=== PATIENT | female | born 1950 | race Caucasian/White ===

== ENCOUNTER 2022-11-20 17:15 | Emergency (ER) | payer MEDICARE ==
[~2022-11-20] VITALS: Ht 165.1 cm; Wt 100.0 kg
[~2022-11-20 17:15] MED LIST: DEXL30CA3 PO; IRON1TAB90 PO; METF-1203 PO; MILK500C PO; SPIR25TA5 PO
[2022-11-20 18:40] LABS: BASOPHILS % (AUTO) 0.8 % (0-1); EOSINOPHILS # (AUTO) 0.2 X10'3 (0-0.9); EOSINOPHILS % (AUTO) 3.1 % (0-6); HEMATOCRIT 41.7 % (35.0-45.0); LYMPHOCYTES % (AUTO) 17.9 % (21-51); MEAN CORPUSCULAR HGB CONC 31.1 g/dL (33.0-36.5); MEAN CORPUSCULAR VOLUME 80.2 FL (78-98); MEAN PLATELET VOLUME 8.1 FL (7.4-10.4); MONOCYTES # (AUTO) 0.1 X10'3 (0-0.9); MONOCYTES % (AUTO) 2.1 % (2-12); NEUTROPHILS # (AUTO) 4.3 X10'3 (1.8-7.7); NEUTROPHILS % (AUTO) 76.1 % (42-75); PLATELET COUNT 196 X10'3 (140-440); RED CELL DISTRIBUTION WIDTH 22.9 % (11.5-14.5); WHITE BLOOD COUNT 5.7 X10'3 (4.5-11.0)
[2022-11-20 18:56] LABS: ALANINE AMINOTRANSFERASE 22 U/L (12-78); ALBUMIN 3.4 G/DL (3.4-5.0); ALBUMIN/GLOBULIN RATIO 0.8 (1.1-1.5); ALKALINE PHOSPHATASE 108 IU/L (46-116); ANION GAP 12 (8-16); ASPARTATE AMINO TRANSFERASE 19 U/L (10-37); BILIRUBIN,TOTAL 0.8 MG/DL (0.1-1.0); BLOOD UREA NITROGEN 13 MG/DL (7-18); BUN/CREATININE RATIO 10.9 (6.6-38.0); CALCIUM 9.1 MG/DL (8.5-10.1); CHLORIDE 101 MMOL/L (99-107); CREATININE 1.19 MG/DL (0.40-0.90); GLUCOSE 139 MG/DL (70-104); LIPASE 107 U/L (73-393); SODIUM 137 MMOL/L (135-145); TOTAL PROTEIN 7.5 G/DL (6.4-8.2); eGFR 45 ML/MIN
[2022-11-20 19:34] LABS: ANISOCYTOSIS 3+; PLATELET ESTIMATE NORMAL
[2022-11-20 19:35] LABS: ELLIPTOCYTES FEW; TEAR DROP CELLS FEW
[2022-11-20] MEDS ORDERED: ondansetron/PF 4mg/2ml inj IV ONE (20:30)
[2022-11-20] MEDS ORDERED: morphine 4 MG/ML inj SYRINge IV PRN (20:30)
[2022-11-20] MEDS ORDERED: normal saline 1000ML IV soln IVB ONE (20:30)
--- NOTE | 2022-11-20 20:51 | NUR ---
ivp given by charge nurse
[2022-11-20] MEDS ORDERED: LIDOcaine Viscous 15ml cup MM ONE (22:05)
[2022-11-20] MEDS ORDERED: sucralfate 1 gm tablet PO ONE (22:05)
[2022-11-20] MEDS ORDERED: mag hydrox/Alum hydrox/simeth 30ml oral suspension PO ONE (22:05)
[2022-11-20] MEDS ORDERED: SUCR1TAB34 PO (22:23)
[2022-11-20] MEDS ORDERED: ONDA4TAB12 PO (22:23)
[2022-11-20 22:24] VITALS: BP 136/74
--- NOTE | 2022-11-20 23:34 | NUR ---
IV DC'D PT BEING DISCHARGED DRESSING APPLIED
== END 2022-11-20 23:36 | disposition home or self-care (01) ==
LOC: ER 17:15
DX: R10.13 Epigastric pain (principal); R11.2 Nausea with vomiting, unspecified; E11.9 Type 2 diabetes mellitus without complications; G89.29 Other chronic pain; Z98.51 Tubal ligation status; Z79.899 Other long term (current) drug therapy; Z79.84 Long term (current) use of oral hypoglycemic drugs
CPT/HCPCS: 36415; 74176; 80053; 83690; 85008; 85025; 96361; 96374; 96375; 99285; J2270; J2405; J7030

== ENCOUNTER 2022-11-24 04:20 | Emergency (ER) | payer MEDICARE ==
[~2022-11-24] VITALS: Ht 165.1 cm; Wt 100.0 kg
[~2022-11-24 04:20] MED LIST changes: +ONDA4TAB12 PO; +SUCR1TAB34 PO
[2022-11-24 04:50] LABS: BASOPHILS # (AUTO) 0.1 X10'3 (0-0.2); BASOPHILS % (AUTO) 0.7 % (0-1); EOSINOPHILS # (AUTO) 0.2 X10'3 (0-0.9); EOSINOPHILS % (AUTO) 2.3 % (0-6); HEMATOCRIT 34.4 % (35.0-45.0); HEMOGLOBIN 10.9 g/dl (12.0-16.0); LYMPHOCYTES # (AUTO) 0.8 X10'3 (1.1-4.8); LYMPHOCYTES % (AUTO) 8.5 % (21-51); MEAN CORPUSCULAR HGB CONC 31.6 g/dL (33.0-36.5); MEAN CORPUSCULAR VOLUME 79.3 FL (78-98); MEAN PLATELET VOLUME 7.2 FL (7.4-10.4); MONOCYTES # (AUTO) 1.1 X10'3 (0-0.9); MONOCYTES % (AUTO) 11.7 % (2-12); NEUTROPHILS # (AUTO) 7.2 X10'3 (1.8-7.7); NEUTROPHILS % (AUTO) 76.8 % (42-75); PLATELET COUNT 205 X10'3 (140-440); RED BLOOD COUNT 4.34 X10'6 (4.20-5.60); WHITE BLOOD COUNT 9.4 X10'3 (4.5-11.0)
[2022-11-24] MEDS ORDERED: ondansetron/PF 4mg/2ml inj IV ONE (04:50)
[2022-11-24] MEDS ORDERED: morphine 4 MG/ML inj SYRINge IV ONE (04:50)
[2022-11-24 05:07] LABS: ALANINE AMINOTRANSFERASE 15 U/L (12-78); ALBUMIN 2.5 G/DL (3.4-5.0); ALBUMIN/GLOBULIN RATIO 0.7 (1.1-1.5); ALKALINE PHOSPHATASE 125 IU/L (46-116); ANION GAP 10 (8-16); ASPARTATE AMINO TRANSFERASE 19 U/L (10-37); BILIRUBIN,TOTAL 0.8 MG/DL (0.1-1.0); BLOOD UREA NITROGEN 34 MG/DL (7-18); BUN/CREATININE RATIO 20.2 (6.6-38.0); CHLORIDE 103 MMOL/L (99-107); CREATININE 1.68 MG/DL (0.40-0.90); GLUCOSE 114 MG/DL (70-104); LIPASE 228 U/L (73-393); POTASSIUM 4.3 MMOL/L (3.5-5.1); SODIUM 136 MMOL/L (135-145); TOTAL CARBON DIOXIDE 22.8 MMOL/L (24-32); TOTAL PROTEIN 6.3 G/DL (6.4-8.2); eGFR 30 ML/MIN
[2022-11-24] MEDS ORDERED: LIDOCAINE 2%/EPI 1:100,000 inj. Multi-dose 20 ML VIAL SQ ONE (06:25)
[2022-11-24 06:59] LABS: PLATELET ESTIMATE NORMAL
[2022-11-24 07:00] LABS: ANISOCYTOSIS 3+; ELLIPTOCYTES 1+; HYPOCHROMASIA 1+; MICROCYTOSIS 1+; POLYCHROMASIA FEW
[2022-11-24 07:01] LABS: BURR CELLS 1+
--- NOTE | 2022-11-24 07:43 | NUR ---
5.5 bottles peritoneal fluid drained from abdomen. Pt c/o of lower right abd pain, but states it is not new pain, and that she has had it for a few days. Pt macie procedure. Addendum: 11/24/22 at 0815 by INEZ 6 bottles of peritoneal fluid withdrawn
[2022-11-24] MEDS ORDERED: albumin (Human) 5% 250ml 250 ML IV ONE (07:50)
[2022-11-24] MEDS ORDERED: albumin (human) 25% 100 ML IV solution IV ONE (07:55)
[2022-11-24 08:57] LABS: BODY FLUID PH (NON-PLEURAL) 7.5
[2022-11-24 09:10] LABS: LDH,BODY FLUID 158 U/L
[2022-11-24 09:11] LABS: ALBUMIN,BODY FLUID 0.7 G/DL; GLUCOSE,BODY FLUID 103 MG/DL
[2022-11-24 09:13] LABS: LYMPHOCYTES,BODY FLUID 15 %; MONOCYTES,BODY FLUID 5 %; NEUTROPHILS,BODY FLUID 80 %
[2022-11-24 09:16] LABS: BF RBC COUNT 10375 /CU MM; BF WBC COUNT 4100 /CU MM (0-1000); BFAPPEAR CLOUDY; BFCOLOR OTHER; BFVOLUME 18 ML
--- NOTE | 2022-11-24 09:16 | NUR ---
T/C from to check in on . Verified appropriateness to pass on information, and updated him to her condition. Pt will call him back shortly.
[2022-11-24 09:33] LABS: TOTAL PROTEIN,BODY FLUID < 2.0 G/DL
[2022-11-24] MEDS ORDERED: SPIR50TA5 PO (09:53)
[2022-11-24] MEDS ORDERED: FURO-149 PO (09:53)
[2022-11-24 10:19] VITALS: BP 115/74
== END 2022-11-24 10:10 | disposition home or self-care (01) ==
LOC: ER 04:21
DX: R18.8 Other ascites (principal); K76.6 Portal hypertension; E11.9 Type 2 diabetes mellitus without complications; G89.29 Other chronic pain; M54.50 Low back pain, unspecified
CPT/HCPCS: 36415; 49083; 80053; 82042; 82945; 83615; 83690; 83986; 84157; 85008; 85025; 85610; 87070; 89051; 96365; 96375; 99285; J2270; J2405; P9047

== ENCOUNTER 2023-06-19 08:22 | Day surgery (SDC) | payer MEDICARE ==
[~2023-06-19] VITALS: Ht 165.1 cm; Wt 79.5 kg
[~2023-06-19 08:22] MED LIST changes: +FURO-149 PO; +SPIR50TA5 PO
[2023-06-19 08:34] VITALS: BP 117/76; PULSE 79; RESP 16; TEMP 97.5; O2SAT 96
[2023-06-19] MEDS ORDERED: CLON1TAB12 PO (08:48)
[2023-06-19] MEDS ORDERED: OMEP20CA16 PO (08:48)
[2023-06-19] MEDS ORDERED: FURO40TA4 PO (08:48)
[2023-06-19] MEDS ORDERED: HYDR50CA5 PO (08:48)
[2023-06-19] MEDS ORDERED: METF-436 PO (08:48)
[2023-06-19] MEDS ORDERED: albumin 25% 100mL bottle x 1 IV PRN (08:55)
[2023-06-19 09:00] VITALS: BP 117/76; PULSE 79; RESP 16; O2SAT 96
== END 2023-06-19 09:25 | disposition home or self-care (01) ==
LOC: SSTAY O 08:22
PROVIDERS: ATTEND Radiology Vascular & Interventional Radiology
DX: K70.31 Alcoholic cirrhosis of liver with ascites (principal); Z53.8 Procedure and treatment not carried out for other reasons; I10 Essential (primary) hypertension; D64.9 Anemia, unspecified; E11.9 Type 2 diabetes mellitus without complications; F98.8 Other specified behavioral and emotional disorders with onset usually occurring in childhood and adolescence; F41.9 Anxiety disorder, unspecified; M19.90 Unspecified osteoarthritis, unspecified site; F32.A Depression, unspecified; K21.9 Gastro-esophageal reflux disease without esophagitis; E78.5 Hyperlipidemia, unspecified; F10.20 Alcohol dependence, uncomplicated; Z98.51 Tubal ligation status; Z98.1 Arthrodesis status; Z87.891 Personal history of nicotine dependence; Z79.84 Long term (current) use of oral hypoglycemic drugs; Z79.899 Other long term (current) drug therapy
CPT/HCPCS: 76705

== ENCOUNTER 2024-02-07 14:06 | Emergency (ER) | payer MEDICARE ==
[~2024-02-07] VITALS: Ht 165.1 cm; Wt 83.6 kg
[~2024-02-07 14:06] MED LIST changes: -DEXL30CA3 PO; +FERR325T28 PO; +FOLI0.4T6 PO; -FURO-149 PO; +HYDR50CA5 PO; -IRON1TAB90 PO; -METF-1203 PO; -MILK500C PO; -ONDA4TAB12 PO; +PANT40TA54 PO; +PROP10TA10 PO; +RIFA550T PO; -SPIR50TA5 PO; -SUCR1TAB34 PO; +ZAR2.5T PO
[2024-02-07 15:26] LABS: HEMATOCRIT 29.2 % (35.0-45.0); MEAN CORPUSCULAR HEMOGLOBIN 23.8 PG (27.0-31.0); MEAN CORPUSCULAR HGB CONC 30.9 g/dL (33.0-36.5); MEAN PLATELET VOLUME 8.2 FL (7.4-10.4); PLATELET COUNT 121 X10'3 (140-440); RED BLOOD COUNT 3.79 X10'6 (4.20-5.60); RED CELL DISTRIBUTION WIDTH 22.5 % (11.5-14.5); WHITE BLOOD COUNT 6.1 X10'3 (4.5-11.0)
[2024-02-07 15:40] LABS: APTT 26 SECONDS (22-32); INR 1.1 INR; PROTHROMBIN TIME 11.8 SECONDS (9.0-12.0)
[2024-02-07 15:43] LABS: ALANINE AMINOTRANSFERASE 24 U/L (12-78); ALBUMIN 2.7 G/DL (3.4-5.0); ALBUMIN/GLOBULIN RATIO 0.6 (1.1-1.5); ALKALINE PHOSPHATASE 85 IU/L (46-116); AMYLASE 41 U/L (25-115); ANION GAP 9 (8-16); ASPARTATE AMINO TRANSFERASE 29 U/L (10-37); BILIRUBIN,TOTAL 0.9 MG/DL (0.1-1.0); BLOOD UREA NITROGEN 24 MG/DL (7-18); BUN/CREATININE RATIO 22.2 (10.0-20.0); CALCIUM 8.4 MG/DL (8.5-10.1); CHLORIDE 104 MMOL/L (99-107); CREATININE 1.08 MG/DL (0.40-0.90); GLUCOSE 122 MG/DL (70-104); LIPASE 64 U/L (16-77); POTASSIUM 3.9 MMOL/L (3.5-5.1); SODIUM 139 MMOL/L (135-145); TOTAL CARBON DIOXIDE 26.3 MMOL/L (24-32); eCRCL 42 ML/MIN; eGFR 50 ML/MIN
[2024-02-07 16:20] LABS: TOTAL CELLS COUNTED 100
[2024-02-07 16:21] LABS: ANISOCYTOSIS 3+; MICROCYTOSIS 1+; PLATELET ESTIMATE DECREASED
[2024-02-07 16:22] LABS: BURR CELLS FEW; ELLIPTOCYTES FEW; TEAR DROP CELLS FEW
[2024-02-07 16:23] LABS: POIKILOCYTOSIS FEW; POLYCHROMASIA FEW
[2024-02-07 19:15] LABS: BASOPHILS # (AUTO) 0.1 X10'3 (0-0.2); BASOPHILS % (AUTO) 0.7 % (0-1); EOSINOPHILS # (AUTO) 0.1 X10'3 (0-0.9); EOSINOPHILS % (AUTO) 1.9 % (0-6); HEMATOCRIT 29.1 % (35.0-45.0); HEMOGLOBIN 9.4 g/dl (12.0-16.0); LYMPHOCYTES # (AUTO) 1.2 X10'3 (1.1-4.8); LYMPHOCYTES % (AUTO) 16.4 % (21-51); MEAN CORPUSCULAR HEMOGLOBIN 24.3 PG (27.0-31.0); MEAN CORPUSCULAR HGB CONC 32.1 g/dL (33.0-36.5); MEAN CORPUSCULAR VOLUME 75.6 FL (78-98); MEAN PLATELET VOLUME 8.1 FL (7.4-10.4); MONOCYTES # (AUTO) 0.5 X10'3 (0-0.9); MONOCYTES % (AUTO) 7.6 % (2-12); NEUTROPHILS # (AUTO) 5.2 X10'3 (1.8-7.7); NEUTROPHILS % (AUTO) 73.4 % (42-75); PLATELET COUNT 153 X10'3 (140-440); RED BLOOD COUNT 3.85 X10'6 (4.20-5.60); RED CELL DISTRIBUTION WIDTH 22.2 % (11.5-14.5); WHITE BLOOD COUNT 7.1 X10'3 (4.5-11.0)
[2024-02-07] MEDS ORDERED: ONDA8TAB13 PO (19:24)
[2024-02-07] MEDS: ondansetron 4mg rapidly disintigrating tab PO ONE (19:34)
[2024-02-07 19:38] VITALS: BP 138/80; PULSE 89; RESP 18; TEMP 98.1; O2SAT 98
== END 2024-02-07 19:40 | disposition home or self-care (01) ==
LOC: ER 14:07
DX: K92.0 Hematemesis (principal); I10 Essential (primary) hypertension; D64.9 Anemia, unspecified; E11.9 Type 2 diabetes mellitus without complications; G89.29 Other chronic pain; M54.9 Dorsalgia, unspecified; Z98.51 Tubal ligation status
CPT/HCPCS: 36415; 80053; 82140; 82150; 83690; 85007; 85025; 85610; 85730; 86885; 86900; 86901; 99283

== ENCOUNTER 2024-02-10 22:37 | Inpatient (IN) | payer MEDICARE ==
[~2024-02-10] VITALS: Ht 165.1 cm; Wt 83.6 kg
[~2024-02-10 22:37] MED LIST changes: +ONDA8TAB13 PO
[2024-02-10] MEDS ORDERED: pantoprazole 40mg IV 80 MG in normal saline 100ml IV soln 100 ML IV ONE (23:35)
[2024-02-10 23:40] LABS: BASOPHILS # (AUTO) 0.1 X10'3 (0-0.2); BASOPHILS % (AUTO) 1.1 % (0-1); EOSINOPHILS # (AUTO) 0.5 X10'3 (0-0.9); EOSINOPHILS % (AUTO) 9.7 % (0-6); LYMPHOCYTES # (AUTO) 0.7 X10'3 (1.1-4.8); LYMPHOCYTES % (AUTO) 13.3 % (21-51); MEAN CORPUSCULAR HEMOGLOBIN 23.8 PG (27.0-31.0); MEAN CORPUSCULAR HGB CONC 31.5 g/dL (33.0-36.5); MEAN CORPUSCULAR VOLUME 75.5 FL (78-98); MEAN PLATELET VOLUME 8.4 FL (7.4-10.4); MONOCYTES # (AUTO) 0.5 X10'3 (0-0.9); MONOCYTES % (AUTO) 10.5 % (2-12); NEUTROPHILS # (AUTO) 3.4 X10'3 (1.8-7.7); NEUTROPHILS % (AUTO) 65.4 % (42-75); PLATELET COUNT 111 X10'3 (140-440); RED BLOOD COUNT 2.62 X10'6 (4.20-5.60); RED CELL DISTRIBUTION WIDTH 22.1 % (11.5-14.5); WHITE BLOOD COUNT 5.2 X10'3 (4.5-11.0)
[2024-02-10] MEDS: ondansetron/PF 4mg/2ml inj IV ONE (23:47)
[2024-02-10] MEDS: CefTRIAXone/D5W-Rocephin 1gm 50 ML IV SCH (23:50)
[2024-02-10 23:53] LABS: ALANINE AMINOTRANSFERASE 22 U/L (12-78); ALBUMIN 2.2 G/DL (3.4-5.0); ALBUMIN/GLOBULIN RATIO 0.6 (1.1-1.5); ALKALINE PHOSPHATASE 83 IU/L (46-116); ANION GAP 7 (8-16); ASPARTATE AMINO TRANSFERASE 24 U/L (10-37); BILIRUBIN,TOTAL 0.4 MG/DL (0.1-1.0); BLOOD UREA NITROGEN 25 MG/DL (7-18); BUN/CREATININE RATIO 20.3 (10.0-20.0); CALCIUM 7.3 MG/DL (8.5-10.1); CHLORIDE 105 MMOL/L (99-107); CREATININE 1.23 MG/DL (0.40-0.90); GLUCOSE 141 MG/DL (70-104); LIPASE 120 U/L (16-77); SODIUM 140 MMOL/L (135-145); TOTAL CARBON DIOXIDE 28.4 MMOL/L (24-32); TOTAL PROTEIN 5.8 G/DL (6.4-8.2); eCRCL 37 ML/MIN; eGFR 43 ML/MIN
[2024-02-10 23:58] LABS: POTASSIUM 2.9 MMOL/L (3.5-5.1)
[2024-02-11] VITALS (24 sets, daily range): BP systolic 85–125; BP diastolic 49–78; PULSE 74–86; RESP 14–20; TEMP 97–98.4; O2SAT 94–99
[2024-02-11 00:02] LABS: APTT 25 SECONDS (22-32); INR 1.1 INR; PROTHROMBIN TIME 12.1 SECONDS (9.0-12.0)
[2024-02-11] MEDS: pantoprazole 40 MG vial IV ONE (00:15)
[2024-02-11] MEDS: pantoprazole 40MG/NS 100ML BAG 100 ML IV ONE (00:21)
[2024-02-11 00:28] LABS: HEMATOCRIT 19.8 % (35.0-45.0); HEMOGLOBIN 6.2 g/dl (12.0-16.0)
[2024-02-11 00:45] LABS: TOTAL CELLS COUNTED 100
[2024-02-11 00:46] LABS: ANISOCYTOSIS 3+; ELLIPTOCYTES FEW; HYPOCHROMASIA 1+; MICROCYTOSIS 1+; PLATELET ESTIMATE DECREASED; POIKILOCYTOSIS 1+; TARGET CELLS FEW
[2024-02-11] MEDS: normal saline 1000ML IV soln IV ONE (00:57)
[2024-02-11] MEDS: octreotide 100mcg/1 ml ampule IV ONE (01:10)
[2024-02-11] MEDS: ondansetron/PF 4mg/2ml inj IV ONE (01:17)
[2024-02-11] MEDS: octreotide inj. 500 MCG in normal saline 100ml IV soln 97.5 ML IV ONE (01:19)
[2024-02-11] MEDS ORDERED: mag hydrox/Alum hydrox/simeth 30ml oral suspension PO PRN (02:55)
[2024-02-11] MEDS ORDERED: magnesium Cl slow-release 64mg tablet PO PRN (02:55)
[2024-02-11] MEDS ORDERED: potassium Cl 20 mEq SR tablet PO PRN ×2 (02:55)
[2024-02-11] MEDS ORDERED: magnesium 4gm in 100ml NS 100 ML IV PRN (02:55)
[2024-02-11] MEDS ORDERED: magnesium hydroxide 30ml (MOM) UD suspension PO PRN (02:55)
[2024-02-11] MEDS ORDERED: ondansetron/PF 4mg/2ml inj IV PRN (02:55)
[2024-02-11] MEDS ORDERED: acetaminophen 325mg tablet PO PRN (02:55)
[2024-02-11] MEDS: ringers solution, lacted 1,000 ML IV ONE (03:00)
[2024-02-11] MEDS: POTASSIUM BICARB 20meq eff tab 20 MEQ TABLET.EFF PO ONE (03:07)
[2024-02-11 03:39] LABS: MAGNESIUM 1.6 MG/DL (1.5-2.4)
[2024-02-11] MEDS: POTASSIUM BICARB 20meq eff tab 20 MEQ TABLET.EFF PO STA (03:51)
[2024-02-11] MEDS: hydrOXYzine 25 MG tablet PO ONE (04:21)
[2024-02-11] MEDS: normal saline 1000ml 1,000 ML IV SCH (04:29)
[2024-02-11] MEDS: chlordiazePOXIDE 25mg capsule PO ONE ×2 (04:29→23:51)
[2024-02-11 05:05] LABS: MEAN CORPUSCULAR HEMOGLOBIN 24.7 PG (27.0-31.0); MEAN CORPUSCULAR HGB CONC 32.3 g/dL (33.0-36.5); MEAN CORPUSCULAR VOLUME 76.6 FL (78-98); MEAN PLATELET VOLUME 8.4 FL (7.4-10.4); PLATELET COUNT 88 X10'3 (140-440); RED BLOOD COUNT 2.53 X10'6 (4.20-5.60); RED CELL DISTRIBUTION WIDTH 20.5 % (11.5-14.5); WHITE BLOOD COUNT 5.2 X10'3 (4.5-11.0)
[2024-02-11 05:09] LABS: HEMOGLOBIN 6.2 g/dl (12.0-16.0)
[2024-02-11 05:10] LABS: HEMATOCRIT 19.3 % (35.0-45.0)
[2024-02-11] MEDS: pantoprazole 40MG/NS 100ML BAG 100 ML IV SCH ×2 (06:03→18:56)
[2024-02-11 09:16] LABS: HEMATOCRIT 26.7 % (35.0-45.0); HEMOGLOBIN 8.9 g/dl (12.0-16.0); MEAN CORPUSCULAR HGB CONC 33.4 g/dL (33.0-36.5); MEAN CORPUSCULAR VOLUME 77.7 FL (78-98); MEAN PLATELET VOLUME 8.6 FL (7.4-10.4); PLATELET COUNT 87 X10'3 (140-440); RED BLOOD COUNT 3.43 X10'6 (4.20-5.60); RED CELL DISTRIBUTION WIDTH 19.1 % (11.5-14.5); WHITE BLOOD COUNT 6.3 X10'3 (4.5-11.0)
[2024-02-11] MEDS: ringers solution, lactated 500ml IV solution IV ONE (10:11)
[2024-02-11] MEDS: CefTRIAXone/D5W-Rocephin 1gm 50 ML IV SCH (10:25)
[2024-02-11] MEDS: potassium Cl 40MEQ/1/2NS 520ml 520 ML IV PRN (12:30)
[2024-02-11] MEDS ORDERED: fentaNYL/PF 50MCG/1 ML 2ML syringe ONE (13:56)
[2024-02-11] MEDS ORDERED: LIDOcaine 2% Viscous 15ml cup ONE (13:57)
[2024-02-11] MEDS ORDERED: MIDAZolam 1 MG/ML 5ML VIAL ONE (13:57)
[2024-02-11] MEDS ORDERED: levoFLOXACIN-Levaquin 500mg/D5 100 ML IV ONE (14:26)
[2024-02-11 15:55] LABS: HEMATOCRIT 26.1 % (35.0-45.0); HEMOGLOBIN 8.4 g/dl (12.0-16.0); MEAN CORPUSCULAR HEMOGLOBIN 25.1 PG (27.0-31.0); MEAN CORPUSCULAR HGB CONC 32.1 g/dL (33.0-36.5); MEAN CORPUSCULAR VOLUME 78.2 FL (78-98); MEAN PLATELET VOLUME 8.8 FL (7.4-10.4); PLATELET COUNT 89 X10'3 (140-440); RED BLOOD COUNT 3.34 X10'6 (4.20-5.60); RED CELL DISTRIBUTION WIDTH 18.8 % (11.5-14.5); WHITE BLOOD COUNT 4.7 X10'3 (4.5-11.0)
[2024-02-11 22:10] LABS: HEMATOCRIT 26.2 % (35.0-45.0); HEMOGLOBIN 8.5 g/dl (12.0-16.0); MEAN CORPUSCULAR HGB CONC 32.3 g/dL (33.0-36.5); MEAN CORPUSCULAR VOLUME 77.5 FL (78-98); MEAN PLATELET VOLUME 9.2 FL (7.4-10.4); PLATELET COUNT 85 X10'3 (140-440); RED BLOOD COUNT 3.39 X10'6 (4.20-5.60); RED CELL DISTRIBUTION WIDTH 18.9 % (11.5-14.5); WHITE BLOOD COUNT 4.2 X10'3 (4.5-11.0)
[2024-02-11 23:36] LABS: BILIRUBIN,URINE NEGATIVE (Neg); CLARITY,URINE SLIGHTLY CLOUDY (Clear); COLOR,URINE YELLOW (Yellow); GLUCOSE, URINE NEGATIVE (Neg); KETONES,URINE NEGATIVE (Neg); LEUKOCYTE ESTERASE ,URINE NEGATIVE (Neg); NITRITES, URINE NEGATIVE (Neg); OCCULT BLOOD,URINE NEGATIVE (Neg); PH,URINE 5.5 (4.8-8.0); PROTEIN,URINE NEGATIVE (Neg); UROBILINOGEN,URINE 0.2 E.U/dL (0.2-1.0)
[2024-02-11 23:42] LABS: UA COLLECTION TYPE CLN CATCH MIDSTREAM
[2024-02-11 23:44] LABS: HYALINE CASTS 0-3 /LPF (NEGATIVE); MUCUS STRANDS FEW /LPF (Neg); SQUAMOUS EPITHELIAL CELL,UR MODERATE /LPF (FEW)
[2024-02-11 23:45] LABS: BACTERIA,URINE FEW /HPF (Neg); RBC,URINE 0-2 /HPF (0-2); TRANSITIONAL EPI CELLS,URINE FEW /HPF; WBC,URINE 0-4 /HPF (0-4)
[2024-02-12] VITALS (8 sets, daily range): BP systolic 106–122; BP diastolic 59–77; PULSE 68–91; RESP 12–20; TEMP 97–98.2; O2SAT 91–96
[2024-02-12] MEDS: morphine 2 MG/ML inj. syringe IV ONE (05:48)
[2024-02-12 07:58] LABS: BASOPHILS % (AUTO) 0.6 % (0-1); EOSINOPHILS # (AUTO) 0.3 X10'3 (0-0.9); EOSINOPHILS % (AUTO) 7.8 % (0-6); HEMATOCRIT 25.5 % (35.0-45.0); HEMOGLOBIN 8.4 g/dl (12.0-16.0); LYMPHOCYTES # (AUTO) 0.4 X10'3 (1.1-4.8); LYMPHOCYTES % (AUTO) 10.5 % (21-51); MEAN CORPUSCULAR HEMOGLOBIN 25.4 PG (27.0-31.0); MEAN CORPUSCULAR HGB CONC 32.8 g/dL (33.0-36.5); MEAN CORPUSCULAR VOLUME 77.3 FL (78-98); MEAN PLATELET VOLUME 8.5 FL (7.4-10.4); MONOCYTES # (AUTO) 0.6 X10'3 (0-0.9); MONOCYTES % (AUTO) 13.4 % (2-12); NEUTROPHILS # (AUTO) 2.8 X10'3 (1.8-7.7); NEUTROPHILS % (AUTO) 67.7 % (42-75); PLATELET COUNT 91 X10'3 (140-440); RED CELL DISTRIBUTION WIDTH 19.3 % (11.5-14.5); WHITE BLOOD COUNT 4.2 X10'3 (4.5-11.0)
[2024-02-12] MEDS ORDERED: hydrOXYzine 25 MG tablet PO PRN (08:10)
[2024-02-12 08:21] LABS: ALANINE AMINOTRANSFERASE 16 U/L (12-78); ALBUMIN 2.2 G/DL (3.4-5.0); ALBUMIN/GLOBULIN RATIO 0.6 (1.1-1.5); ALKALINE PHOSPHATASE 71 IU/L (46-116); ANION GAP 7 (8-16); ASPARTATE AMINO TRANSFERASE 24 U/L (10-37); BILIRUBIN,TOTAL 0.9 MG/DL (0.1-1.0); BLOOD UREA NITROGEN 21 MG/DL (7-18); BUN/CREATININE RATIO 20.8 (10.0-20.0); CALCIUM 7.3 MG/DL (8.5-10.1); CHLORIDE 106 MMOL/L (99-107); CREATININE 1.01 MG/DL (0.40-0.90); GLUCOSE 106 MG/DL (70-104); SODIUM 138 MMOL/L (135-145); TOTAL CARBON DIOXIDE 24.7 MMOL/L (24-32); TOTAL PROTEIN 5.9 G/DL (6.4-8.2); eCRCL 45 ML/MIN; eGFR 54 ML/MIN
[2024-02-12] MEDS ORDERED: carvedilol 6.25mg tablet PO SCH (08:50)
[2024-02-12] MEDS ORDERED: propranolol 10mg tablet PO SCH ×2 (08:55→20:00)
[2024-02-12] MEDS: nystatin 15 GM powder TP SCH (09:21)
[2024-02-12] MEDS: propranolol 10mg tablet PO ONE (09:21)
[2024-02-12] MEDS: octreotide 100mcg/1 ml ampule IV ONE (10:37)
[2024-02-12] MEDS: pantoprazole 40MG/NS 100ML BAG 100 ML IV SCH (10:38)
[2024-02-12] MEDS: spironolactone 25 MG tablet PO SCH (10:39)
[2024-02-12] MEDS: octreotide inj. 500 MCG in normal saline 100ml IV soln 97.5 ML IV SCH (10:39)
[2024-02-12] MEDS: POTASSIUM BICARB 20meq eff tab 20 MEQ TABLET.EFF PO PRN (13:47)
[2024-02-12] MEDS: furosemide 40mg tablet PO SCH (15:41)
[2024-02-12] MEDS: lactulose 20gm/30ml cup PO SCH (19:52)
[2024-02-12] MEDS: metolazone 2.5mg tablet PO SCH (19:52)
[2024-02-12] MEDS: morphine 2 MG/ML inj. syringe IV PRN (21:51)
[2024-02-12] MEDS: rifaximin 550mg tablet PO SCH (21:51)
[2024-02-12] MEDS: chlordiazePOXIDE 25mg capsule PO ONE (21:51)
[2024-02-12] MEDS: propranolol 10mg tablet PO SCH (21:52)
[2024-02-13] VITALS (10 sets, daily range): BP systolic 88–118; BP diastolic 43–71; PULSE 60–71; RESP 13–20; TEMP 97–98.7; O2SAT 94–99
[2024-02-13] MEDS: folic acid 0.4mg tablet PO SCH (08:18)
[2024-02-13 08:35] LABS: BASOPHILS # (AUTO) 0.1 X10'3 (0-0.2); BASOPHILS % (AUTO) 1.5 % (0-1); EOSINOPHILS # (AUTO) 0.5 X10'3 (0-0.9); EOSINOPHILS % (AUTO) 9.6 % (0-6); HEMATOCRIT 25.5 % (35.0-45.0); HEMOGLOBIN 8.3 g/dl (12.0-16.0); LYMPHOCYTES # (AUTO) 0.9 X10'3 (1.1-4.8); LYMPHOCYTES % (AUTO) 18.5 % (21-51); MEAN CORPUSCULAR HEMOGLOBIN 25.3 PG (27.0-31.0); MEAN CORPUSCULAR HGB CONC 32.7 g/dL (33.0-36.5); MEAN CORPUSCULAR VOLUME 77.4 FL (78-98); MEAN PLATELET VOLUME 8.5 FL (7.4-10.4); MONOCYTES # (AUTO) 0.6 X10'3 (0-0.9); MONOCYTES % (AUTO) 11.3 % (2-12); NEUTROPHILS % (AUTO) 59.1 % (42-75); PLATELET COUNT 117 X10'3 (140-440); RED BLOOD COUNT 3.29 X10'6 (4.20-5.60); RED CELL DISTRIBUTION WIDTH 19.7 % (11.5-14.5); WHITE BLOOD COUNT 5.1 X10'3 (4.5-11.0)
[2024-02-13 09:00] LABS: PLATELET ESTIMATE NORMAL
[2024-02-13 09:03] LABS: ANISOCYTOSIS 2+; MICROCYTOSIS 1+
[2024-02-13 09:04] LABS: ELLIPTOCYTES FEW
[2024-02-13 09:05] LABS: POIKILOCYTOSIS FEW; POLYCHROMASIA FEW; STOMATOCYTES FEW
[2024-02-13 10:08] LABS: ALANINE AMINOTRANSFERASE 14 U/L (12-78); ALBUMIN 2.2 G/DL (3.4-5.0); ALBUMIN/GLOBULIN RATIO 0.6 (1.1-1.5); ALKALINE PHOSPHATASE 65 IU/L (46-116); ANION GAP 5 (8-16); ASPARTATE AMINO TRANSFERASE 26 U/L (10-37); BILIRUBIN,TOTAL 0.7 MG/DL (0.1-1.0); BLOOD UREA NITROGEN 18 MG/DL (7-18); BUN/CREATININE RATIO 15.5 (10.0-20.0); CALCIUM 7.5 MG/DL (8.5-10.1); CHLORIDE 105 MMOL/L (99-107); CREATININE 1.16 MG/DL (0.40-0.90); GLUCOSE 100 MG/DL (70-104); POTASSIUM 3.3 MMOL/L (3.5-5.1); SODIUM 140 MMOL/L (135-145); TOTAL CARBON DIOXIDE 29.6 MMOL/L (24-32); TOTAL PROTEIN 5.8 G/DL (6.4-8.2); eCRCL 39 ML/MIN; eGFR 46 ML/MIN
[2024-02-13] MEDS: POTASSIUM BICARB 20meq eff tab 20 MEQ TABLET.EFF PO PRN (13:45)
[2024-02-13] MEDS: CefTRIAXone/D5W-Rocephin 1gm 50 ML IV SCH (17:55)
[2024-02-13] MEDS: chlordiazePOXIDE 25mg capsule PO ONE (21:16)
[2024-02-14 00:25] VITALS: BP 96/49; PULSE 62; RESP 16; O2SAT 92
[2024-02-14 02:35] VITALS: BP 120/59; PULSE 67; RESP 18; TEMP 98.7; O2SAT 96
[2024-02-14 05:30] VITALS: BP_SYST 9; BP_SYST 95; BP_SYST 98; BP_DIAS 57; BP_DIAS 62; BP_DIAS 70; PULSE 60; PULSE 65; PULSE 75
[2024-02-14 06:00] VITALS: BP 132/60; PULSE 67; RESP 12; TEMP 98; O2SAT 97
[2024-02-14 08:00] VITALS: BP_SYST 101; BP_SYST 94; BP_SYST 96; BP_DIAS 54; BP_DIAS 55; BP_DIAS 62; PULSE 63; PULSE 69; PULSE 72; RESP 18; O2SAT 97
[2024-02-14] MEDS ORDERED: NYSPWD TP (08:23)
[2024-02-14] MEDS ORDERED: LACT10SO7 PO (08:23)
[2024-02-14 09:13] LABS: BASOPHILS % (AUTO) 0.9 % (0-1); EOSINOPHILS # (AUTO) 0.4 X10'3 (0-0.9); EOSINOPHILS % (AUTO) 11.1 % (0-6); HEMATOCRIT 25.5 % (35.0-45.0); HEMOGLOBIN 8.3 g/dl (12.0-16.0); LYMPHOCYTES # (AUTO) 0.7 X10'3 (1.1-4.8); LYMPHOCYTES % (AUTO) 17.3 % (21-51); MEAN CORPUSCULAR HEMOGLOBIN 25.3 PG (27.0-31.0); MEAN CORPUSCULAR HGB CONC 32.6 g/dL (33.0-36.5); MEAN CORPUSCULAR VOLUME 77.6 FL (78-98); MEAN PLATELET VOLUME 8.4 FL (7.4-10.4); MONOCYTES # (AUTO) 0.5 X10'3 (0-0.9); MONOCYTES % (AUTO) 13.7 % (2-12); NEUTROPHILS # (AUTO) 2.2 X10'3 (1.8-7.7); PLATELET COUNT 105 X10'3 (140-440); RED BLOOD COUNT 3.28 X10'6 (4.20-5.60); RED CELL DISTRIBUTION WIDTH 20.4 % (11.5-14.5)
[2024-02-14 09:45] LABS: ALANINE AMINOTRANSFERASE 17 U/L (12-78); ALBUMIN 2.2 G/DL (3.4-5.0); ALBUMIN/GLOBULIN RATIO 0.6 (1.1-1.5); ALKALINE PHOSPHATASE 59 IU/L (46-116); ANION GAP 6 (8-16); ASPARTATE AMINO TRANSFERASE 22 U/L (10-37); BILIRUBIN,TOTAL 0.7 MG/DL (0.1-1.0); BLOOD UREA NITROGEN 18 MG/DL (7-18); BUN/CREATININE RATIO 15.8 (10.0-20.0); CALCIUM 7.6 MG/DL (8.5-10.1); CHLORIDE 103 MMOL/L (99-107); CREATININE 1.14 MG/DL (0.40-0.90); GLUCOSE 108 MG/DL (70-104); POTASSIUM 3.2 MMOL/L (3.5-5.1); SODIUM 138 MMOL/L (135-145); TOTAL CARBON DIOXIDE 29.5 MMOL/L (24-32); TOTAL PROTEIN 5.8 G/DL (6.4-8.2); eCRCL 40 ML/MIN; eGFR 47 ML/MIN
[2024-02-14 10:11] LABS: ANISOCYTOSIS 3+; MICROCYTOSIS 1+; PLATELET ESTIMATE DECREASED; POLYCHROMASIA 1+
[2024-02-14 10:13] LABS: ELLIPTOCYTES FEW
[2024-02-14 10:14] LABS: HYPOCHROMASIA 1+
[2024-02-14 11:00] VITALS: BP 101/62; PULSE 69; RESP 15; TEMP 98; O2SAT 97
[2024-02-14] MEDS ORDERED: POTA-208 PO (11:27)
[2024-02-14] MEDS: POTASSIUM BICARB 20meq eff tab 20 MEQ TABLET.EFF PO ONE (12:56)
== END 2024-02-14 15:34 | disposition home or self-care (01) | DRG 432 ==
LOC: ER 22:37 → UNDOADMIN 02-11 02:57 → ED HOLD 02-11 02:57 → UNDOADMIN 02-11 06:59 → ED HOLD 02-11 06:59 → PCU 3S 02-11 21:18
PROVIDERS: ADMIT Internal Medicine Critical Care Medicine; ATTEND Family Medicine
PROC: 06L38CZ Occlusion of Esophageal Vein with Extraluminal Device, Via Natural or Artificial Opening Endoscopic (ICD-10-PCS; principal; 2024-02-11)
PROC: 30233N1 Transfusion of Nonautologous Red Blood Cells into Peripheral Vein, Percutaneous Approach (ICD-10-PCS; 2024-02-11)
DX: K70.31 Alcoholic cirrhosis of liver with ascites (principal); I85.11 Secondary esophageal varices with bleeding; K76.6 Portal hypertension; E87.6 Hypokalemia; G89.29 Other chronic pain; D69.6 Thrombocytopenia, unspecified; D64.9 Anemia, unspecified; I10 Essential (primary) hypertension; E11.9 Type 2 diabetes mellitus without complications; M54.9 Dorsalgia, unspecified; K29.70 Gastritis, unspecified, without bleeding; R16.1 Splenomegaly, not elsewhere classified; M51.36 Other intervertebral disc degeneration, lumbar region; S09.90XA Unspecified injury of head, initial encounter; X58.XXXA Exposure to other specified factors, initial encounter; Y93.89 Activity, other specified; Y92.89 Other specified places as the place of occurrence of the external cause; Y99.8 Other external cause status; Z98.51 Tubal ligation status; Z87.891 Personal history of nicotine dependence
CPT/HCPCS: 36415; 36430; 43244; 70450; 71045; 80053; 81001; 83036; 83690; 83735; 84132; 85007; 85008; 85025; 85027; 85610; 85730; 86885; 86900; 86901; 86920; 87081; 93005; 96365; 96367; 96375; 97161; 97530; 99152; 99291; A4615; A4620; C9113; G0378; J0696; J1956; J2250; J2270; J2354; J2405; J3010; J3480; J3490; J7030; J7050; J7120; P9016

== ENCOUNTER 2024-06-09 11:44 | Day surgery (SDC) | payer MEDICARE ==
[~2024-06-09] VITALS: Ht 165.1 cm; Wt 81.8 kg
[~2024-06-09 11:44] MED LIST changes: +CLON1TAB12; -FERR325T28 PO; -FOLI0.4T6 PO; -HYDR50CA5 PO; +LACT10SO7 PO; +ONDA-245 PO; -ONDA8TAB13 PO; +PANT-47 PO; -PANT40TA54 PO; -RIFA550T PO; -ZAR2.5T PO
[2024-06-09] MEDS ORDERED: FOLI0.4T6 PO (12:02)
[2024-06-09] MEDS ORDERED: OMEP40CA21 PO (12:02)
[2024-06-09] MEDS ORDERED: CHOL20004 PO (12:04)
[2024-06-09 12:12] VITALS: BP 105/46; PULSE 65; RESP 16
[2024-06-09] MEDS ORDERED: propofol inj 20 ML IV ONE (13:42)
[2024-06-09 13:53] VITALS: BP 102/61; PULSE 66; RESP 16; O2SAT 100
[2024-06-09 14:03] VITALS: BP 102/61; PULSE 66; RESP 16; O2SAT 100
[2024-06-09 14:13] VITALS: BP 109/64; PULSE 67; RESP 18; O2SAT 100
[2024-06-09 14:23] VITALS: BP 120/63; PULSE 71; RESP 16; O2SAT 97
== END 2024-06-09 14:23 | disposition home or self-care (01) ==
LOC: GI LAB 11:44
PROVIDERS: ATTEND Internal Medicine Gastroenterology
DX: I85.00 Esophageal varices without bleeding (principal); K76.6 Portal hypertension; K31.89 Other diseases of stomach and duodenum; K21.9 Gastro-esophageal reflux disease without esophagitis; J44.9 Chronic obstructive pulmonary disease, unspecified
CPT/HCPCS: 43239; A4620; J2704; J7030; Z7512; 88305

== ENCOUNTER 2024-08-12 18:08 | Emergency (ER) | payer MEDICARE ==
[~2024-08-12] VITALS: Ht 165.1 cm; Wt 87.3 kg
[~2024-08-12 18:08] MED LIST changes: +CHOL20004 PO; +FOLI0.4T6 PO; +OMEP40CA21 PO; -PANT-47 PO
[2024-08-12 19:46] LABS: APTT 22 SECONDS (22-32); INR 1.1 INR; PROTHROMBIN TIME 11.1 SECONDS (9.0-12.0)
[2024-08-12 19:49] LABS: BASOPHILS % (AUTO) 0.2 % (0-1); EOSINOPHILS # (AUTO) 0.3 X10'3 (0-0.9); EOSINOPHILS % (AUTO) 9.1 % (0-6); HEMATOCRIT 23.3 % (35.0-45.0); HEMOGLOBIN 7.7 g/dl (12.0-16.0); LYMPHOCYTES # (AUTO) 0.6 X10'3 (1.1-4.8); LYMPHOCYTES % (AUTO) 17.4 % (21-51); MEAN CORPUSCULAR HEMOGLOBIN 28.8 PG (27.0-31.0); MEAN CORPUSCULAR HGB CONC 32.9 g/dL (33.0-36.5); MEAN CORPUSCULAR VOLUME 87.5 FL (78-98); MEAN PLATELET VOLUME 8.3 FL (7.4-10.4); MONOCYTES # (AUTO) 0.4 X10'3 (0-0.9); MONOCYTES % (AUTO) 10.8 % (2-12); NEUTROPHILS # (AUTO) 2.3 X10'3 (1.8-7.7); NEUTROPHILS % (AUTO) 62.5 % (42-75); PLATELET COUNT 84 X10'3 (140-440); RED BLOOD COUNT 2.67 X10'6 (4.20-5.60); RED CELL DISTRIBUTION WIDTH 19.5 % (11.5-14.5); WHITE BLOOD COUNT 3.7 X10'3 (4.5-11.0)
[2024-08-12 20:19] LABS: BILIRUBIN,URINE NEGATIVE (Neg); CLARITY,URINE CLEAR (Clear); COLOR,URINE YELLOW (Yellow); GLUCOSE, URINE NEGATIVE (Neg); KETONES,URINE NEGATIVE (Neg); LEUKOCYTE ESTERASE ,URINE SMALL (Neg); NITRITES, URINE POSITIVE (Neg); OCCULT BLOOD,URINE TRACE-INTACT (Neg); PROTEIN,URINE TRACE mg/dl (Neg); UROBILINOGEN,URINE 0.2 E.U/dL (0.2-1.0)
[2024-08-12 20:20] LABS: UA COLLECTION TYPE CLN CATCH MIDSTREAM
[2024-08-12 20:27] LABS: ALANINE AMINOTRANSFERASE 29 U/L (12-78); ALBUMIN 2.9 G/DL (3.4-5.0); ALBUMIN/GLOBULIN RATIO 0.8 (1.1-1.5); ALKALINE PHOSPHATASE 89 IU/L (46-116); ANION GAP 8 (8-16); ASPARTATE AMINO TRANSFERASE 27 U/L (10-37); BILIRUBIN,TOTAL 0.4 MG/DL (0.1-1.0); BLOOD UREA NITROGEN 23 MG/DL (7-18); BUN/CREATININE RATIO 23.2 (10.0-20.0); CALCIUM 8.4 MG/DL (8.5-10.1); CHLORIDE 107 MMOL/L (99-107); CREATININE 0.99 MG/DL (0.40-0.90); GLUCOSE 106 MG/DL (70-104); LIPASE 88 U/L (16-77); POTASSIUM 4.2 MMOL/L (3.5-5.1); SODIUM 139 MMOL/L (135-145); TOTAL CARBON DIOXIDE 24.2 MMOL/L (24-32); TOTAL PROTEIN 6.4 G/DL (6.4-8.2); eCRCL 46 ML/MIN; eGFR 55 ML/MIN
[2024-08-12 20:34] LABS: WBC,URINE 30-50 /HPF (0-4)
[2024-08-12 20:35] LABS: BACTERIA,URINE 2+ /HPF (Neg)
[2024-08-12 20:37] LABS: MUCUS STRANDS NONE SEEN /LPF (Neg); RENAL CELLS, URINE FEW /HPF; SQUAMOUS EPITHELIAL CELL,UR FEW /LPF (FEW)
[2024-08-12 21:04] VITALS: PULSE 78
[2024-08-12] MEDS ORDERED: CEPH-585 PO (21:29)
[2024-08-12 21:32] VITALS: BP 112/51; RESP 16; TEMP 98.2; O2SAT 98
[2024-08-12] MEDS ORDERED: ONDA-245 PO (21:32)
== END 2024-08-12 21:39 | disposition home or self-care (01) ==
LOC: ER 18:09
DX: D64.9 Anemia, unspecified (principal); I10 Essential (primary) hypertension; G89.29 Other chronic pain; K74.60 Unspecified cirrhosis of liver; E11.9 Type 2 diabetes mellitus without complications; K59.00 Constipation, unspecified; Z79.899 Other long term (current) drug therapy; Z98.51 Tubal ligation status
CPT/HCPCS: 80053; 81001; 83690; 83735; 84145; 85025; 85610; 85730; 86885; 86900; 86901; 87088; 99284; J7030

== ENCOUNTER 2024-12-24 12:32 | Inpatient (IN) | payer MEDICARE, MEDICAID ==
[~2024-12-24] VITALS: Ht 165.1 cm; Wt 70.5 kg
[2024-12-24 13:07] LABS: BASOPHILS % (AUTO) 0.2 % (0-1); EOSINOPHILS # (AUTO) 0.2 X10'3 (0-0.9); EOSINOPHILS % (AUTO) 2.9 % (0-6); HEMATOCRIT 32.7 % (35.0-45.0); HEMOGLOBIN 10.9 g/dl (12.0-16.0); LYMPHOCYTES # (AUTO) 1.1 X10'3 (1.1-4.8); LYMPHOCYTES % (AUTO) 16.3 % (21-51); MEAN CORPUSCULAR HEMOGLOBIN 29.6 PG (27.0-31.0); MEAN CORPUSCULAR HGB CONC 33.5 g/dL (33.0-36.5); MEAN CORPUSCULAR VOLUME 88.5 FL (78-98); MEAN PLATELET VOLUME 7.7 FL (7.4-10.4); MONOCYTES # (AUTO) 0.6 X10'3 (0-0.9); MONOCYTES % (AUTO) 8.8 % (2-12); NEUTROPHILS # (AUTO) 4.9 X10'3 (1.8-7.7); NEUTROPHILS % (AUTO) 71.8 % (42-75); PLATELET COUNT 103 X10'3 (140-440); RED BLOOD COUNT 3.69 X10'6 (4.20-5.60); RED CELL DISTRIBUTION WIDTH 19.3 % (11.5-14.5); WHITE BLOOD COUNT 6.8 X10'3 (4.5-11.0)
[2024-12-24 13:32] LABS: ALANINE AMINOTRANSFERASE 32 U/L (12-78); ALBUMIN 3.1 G/DL (3.4-5.0); ALBUMIN/GLOBULIN RATIO 0.8 (1.1-1.5); ALKALINE PHOSPHATASE 104 IU/L (46-116); AMYLASE 39 U/L (25-115); ANION GAP 7 (8-16); ASPARTATE AMINO TRANSFERASE 29 U/L (10-37); BILIRUBIN,TOTAL 0.4 MG/DL (0.1-1.0); BLOOD UREA NITROGEN 38 MG/DL (7-18); BUN/CREATININE RATIO 45.2 (10.0-20.0); CALCIUM 8.4 MG/DL (8.5-10.1); CHLORIDE 107 MMOL/L (99-107); CREATININE 0.84 MG/DL (0.40-0.90); GLUCOSE 98 MG/DL (70-104); LIPASE 61 U/L (16-77); POTASSIUM 4.7 MMOL/L (3.5-5.1); SODIUM 143 MMOL/L (135-145); TOTAL CARBON DIOXIDE 29.3 MMOL/L (24-32); TOTAL PROTEIN 6.9 G/DL (6.4-8.2); eCRCL 52 ML/MIN; eGFR 66 ML/MIN
[2024-12-24 14:34] LABS: ANISOCYTOSIS 2+; PLATELET ESTIMATE DECREASED
[2024-12-24 14:35] LABS: ELLIPTOCYTES FEW; SCHISTOCYTES FEW
[2024-12-24 16:08] LABS: BILIRUBIN,URINE NEGATIVE (Neg); GLUCOSE, URINE NEGATIVE (Neg); KETONES,URINE NEGATIVE (Neg); LEUKOCYTE ESTERASE ,URINE MODERATE (Neg); NITRITES, URINE NEGATIVE (Neg); OCCULT BLOOD,URINE SMALL (Neg); PROTEIN,URINE NEGATIVE (Neg); UROBILINOGEN,URINE 0.2 E.U/dL (0.2-1.0)
[2024-12-24 16:16] LABS: CLARITY,URINE SLIGHTLY CLOUDY (Clear); COLOR,URINE YELLOW (Yellow); UA COLLECTION TYPE CLN CATCH MIDSTREAM
[2024-12-24 16:24] LABS: BACTERIA,URINE 1+ /HPF (Neg); MUCUS STRANDS NONE SEEN /LPF (Neg); SQUAMOUS EPITHELIAL CELL,UR MANY /LPF (FEW); TRANSITIONAL EPI CELLS,URINE FEW /HPF
[2024-12-24] MEDS ORDERED: iohexol 350MG/ML 100ml bottle IV ONE (17:30)
[2024-12-24] MEDS: normal saline 1000ml 1,000 ML IV ONE (20:13)
[2024-12-24] MEDS: pantoprazole 40 MG vial IV ONE (20:13)
[2024-12-24] MEDS ORDERED: magnesium Cl slow-release 64mg tablet PO PRN (20:30)
[2024-12-24] MEDS ORDERED: potassium Cl 20 mEq SR tablet PO PRN ×2 (20:30)
[2024-12-24] MEDS ORDERED: magnesium sulf-water 4G/100mL 100 ML IV PRN (20:30)
[2024-12-24] MEDS ORDERED: mag hydrox/Alum hydrox/simeth 30ml oral suspension PO PRN (20:30)
[2024-12-24] MEDS ORDERED: magnesium sulf-water 2g/50mL 50 ML IV PRN (20:30)
[2024-12-24] MEDS ORDERED: magnesium hydroxide 30ml (MOM) UD suspension PO PRN (20:30)
[2024-12-24] MEDS ORDERED: potassium Cl 40MEQ/1/2NS 520ml 520 ML IV PRN (20:30)
[2024-12-24 20:52] LABS: BASOPHILS % (AUTO) 0.5 % (0-1); EOSINOPHILS # (AUTO) 0.1 X10'3 (0-0.9); HEMATOCRIT 30.9 % (35.0-45.0); HEMOGLOBIN 10.4 g/dl (12.0-16.0); INR 1.1 INR; LYMPHOCYTES # (AUTO) 0.8 X10'3 (1.1-4.8); LYMPHOCYTES % (AUTO) 17.4 % (21-51); MEAN CORPUSCULAR HEMOGLOBIN 29.5 PG (27.0-31.0); MEAN CORPUSCULAR HGB CONC 33.5 g/dL (33.0-36.5); MEAN CORPUSCULAR VOLUME 87.9 FL (78-98); MEAN PLATELET VOLUME 7.7 FL (7.4-10.4); MONOCYTES # (AUTO) 0.5 X10'3 (0-0.9); MONOCYTES % (AUTO) 9.7 % (2-12); NEUTROPHILS # (AUTO) 3.4 X10'3 (1.8-7.7); NEUTROPHILS % (AUTO) 69.4 % (42-75); PLATELET COUNT 86 X10'3 (140-440); PROTHROMBIN TIME 11.9 SECONDS (9.0-12.0); RED BLOOD COUNT 3.52 X10'6 (4.20-5.60); WHITE BLOOD COUNT 4.8 X10'3 (4.5-11.0)
[2024-12-25] VITALS (19 sets, daily range): BP systolic 106–137; BP diastolic 55–77; PULSE 63–70; RESP 9–18; TEMP 97.2–98.4; O2SAT 92–98
[2024-12-25 01:04] LABS: BASOPHILS % (AUTO) 0.4 % (0-1); EOSINOPHILS # (AUTO) 0.2 X10'3 (0-0.9); EOSINOPHILS % (AUTO) 3.7 % (0-6); HEMATOCRIT 30.3 % (35.0-45.0); HEMOGLOBIN 10.2 g/dl (12.0-16.0); LYMPHOCYTES # (AUTO) 0.9 X10'3 (1.1-4.8); LYMPHOCYTES % (AUTO) 17.6 % (21-51); MEAN CORPUSCULAR HEMOGLOBIN 29.5 PG (27.0-31.0); MEAN CORPUSCULAR HGB CONC 33.8 g/dL (33.0-36.5); MEAN CORPUSCULAR VOLUME 87.4 FL (78-98); MEAN PLATELET VOLUME 7.4 FL (7.4-10.4); MONOCYTES # (AUTO) 0.5 X10'3 (0-0.9); MONOCYTES % (AUTO) 10.1 % (2-12); NEUTROPHILS # (AUTO) 3.5 X10'3 (1.8-7.7); NEUTROPHILS % (AUTO) 68.2 % (42-75); PLATELET COUNT 86 X10'3 (140-440); RED BLOOD COUNT 3.47 X10'6 (4.20-5.60); RED CELL DISTRIBUTION WIDTH 18.9 % (11.5-14.5); WHITE BLOOD COUNT 5.1 X10'3 (4.5-11.0)
[2024-12-25 01:18] LABS: % IRON SATURATION 72 % (11-46); IRON 239 UG/DL (49-151); TOTAL IRON BINDING CAPACITY 330 UG/DL (259-388)
[2024-12-25] MEDS: normal saline 1000ml 1,000 ML IV SCH (01:18)
[2024-12-25] MEDS: pantoprazole 40MG/NS 100ML BAG 100 ML IV SCH (01:18)
[2024-12-25] MEDS: octreotide inj. 500 MCG in normal saline 100ml IV soln 97.5 ML IV SCH (01:18)
[2024-12-25 01:22] LABS: ALANINE AMINOTRANSFERASE 27 U/L (12-78); ALBUMIN/GLOBULIN RATIO 0.8 (1.1-1.5); ALKALINE PHOSPHATASE 95 IU/L (46-116); ANION GAP 8 (8-16); ASPARTATE AMINO TRANSFERASE 31 U/L (10-37); BILIRUBIN,TOTAL 0.4 MG/DL (0.1-1.0); BLOOD UREA NITROGEN 35 MG/DL (7-18); BUN/CREATININE RATIO 36.8 (10.0-20.0); CALCIUM 8.3 MG/DL (8.5-10.1); CHLORIDE 109 MMOL/L (99-107); CREATININE 0.95 MG/DL (0.40-0.90); GLUCOSE 94 MG/DL (70-104); MAGNESIUM 1.6 MG/DL (1.5-2.4); POTASSIUM 3.9 MMOL/L (3.5-5.1); SODIUM 142 MMOL/L (135-145); TOTAL CARBON DIOXIDE 25.4 MMOL/L (24-32); TOTAL PROTEIN 6.6 G/DL (6.4-8.2); eCRCL 46 ML/MIN; eGFR 58 ML/MIN
[2024-12-25] MEDS: propranolol 10mg tablet PO SCH (02:22)
[2024-12-25] MEDS: spironolactone 25 MG tablet PO SCH (02:22)
[2024-12-25] MEDS: acetaminophen 325mg tablet PO PRN (04:19)
[2024-12-25] MEDS: K and/or MAG REPLACEMENT MC SCH (07:11)
[2024-12-25] MEDS ORDERED: LIDOcaine 2% Viscous 15ml cup ONE (14:37)
[2024-12-25] MEDS ORDERED: MIDAZolam 1 MG/ML 5ML VIAL ONE (15:18)
[2024-12-25] MEDS ORDERED: fentaNYL/PF 50MCG/1 ML 2ML syringe ONE (15:18)
[2024-12-25] MEDS ORDERED: simethicone 40mg/0.6ml oral drops 30ml ONE (15:19)
[2024-12-25] MEDS: Melatonin 3mg tablet PO SCH (21:21)
[2024-12-26 02:00] VITALS: BP 114/64; PULSE 63; RESP 18; TEMP 97.3; O2SAT 94
[2024-12-26 06:00] VITALS: BP 104/48; PULSE 62; RESP 12; TEMP 97.8; O2SAT 96
[2024-12-26 06:41] LABS: BASOPHILS % (AUTO) 0.8 % (0-1); EOSINOPHILS # (AUTO) 0.2 X10'3 (0-0.9); EOSINOPHILS % (AUTO) 6.2 % (0-6); HEMATOCRIT 28.6 % (35.0-45.0); HEMOGLOBIN 9.6 g/dl (12.0-16.0); LYMPHOCYTES # (AUTO) 0.6 X10'3 (1.1-4.8); LYMPHOCYTES % (AUTO) 15.3 % (21-51); MEAN CORPUSCULAR HEMOGLOBIN 29.7 PG (27.0-31.0); MEAN CORPUSCULAR HGB CONC 33.6 g/dL (33.0-36.5); MEAN CORPUSCULAR VOLUME 88.4 FL (78-98); MEAN PLATELET VOLUME 7.9 FL (7.4-10.4); MONOCYTES # (AUTO) 0.5 X10'3 (0-0.9); MONOCYTES % (AUTO) 11.7 % (2-12); NEUTROPHILS # (AUTO) 2.6 X10'3 (1.8-7.7); PLATELET COUNT 86 X10'3 (140-440); RED BLOOD COUNT 3.23 X10'6 (4.20-5.60); RED CELL DISTRIBUTION WIDTH 18.7 % (11.5-14.5)
[2024-12-26 06:58] LABS: ALANINE AMINOTRANSFERASE 29 U/L (12-78); ALBUMIN 2.8 G/DL (3.4-5.0); ALBUMIN/GLOBULIN RATIO 0.8 (1.1-1.5); ALKALINE PHOSPHATASE 86 IU/L (46-116); ANION GAP 8 (8-16); ASPARTATE AMINO TRANSFERASE 32 U/L (10-37); BILIRUBIN,TOTAL 0.6 MG/DL (0.1-1.0); BLOOD UREA NITROGEN 27 MG/DL (7-18); CHLORIDE 109 MMOL/L (99-107); CREATININE 0.93 MG/DL (0.40-0.90); GLUCOSE 96 MG/DL (70-104); MAGNESIUM 1.6 MG/DL (1.5-2.4); POTASSIUM 3.8 MMOL/L (3.5-5.1); SODIUM 144 MMOL/L (135-145); TOTAL CARBON DIOXIDE 26.9 MMOL/L (24-32); TOTAL PROTEIN 6.1 G/DL (6.4-8.2); eCRCL 48 ML/MIN; eGFR 59 ML/MIN
[2024-12-26 08:00] VITALS: RESP 12; O2SAT 96
[2024-12-26 09:17] VITALS: BP_SYST 104; PULSE 62
[2024-12-26] MEDS: ondansetron/PF 4mg/2ml inj IV PRN (10:10)
[2024-12-26] MEDS ORDERED: FERR324T4 PO (11:14)
== END 2024-12-26 12:57 | disposition home or self-care (01) | DRG 378 ==
LOC: ER 12:33 → ED HOLD 20:32 → PCU 3S 12-25 12:34
PROVIDERS: ADMIT Surgery Surgical Critical Care; ATTEND Internal Medicine
PROC: 0W3P8ZZ Control Bleeding in Gastrointestinal Tract, Via Natural or Artificial Opening Endoscopic (ICD-10-PCS; principal; 2024-12-25)
DX: K31.811 Angiodysplasia of stomach and duodenum with bleeding (principal); D61.818 Other pancytopenia; K74.60 Unspecified cirrhosis of liver; D64.9 Anemia, unspecified; K31.89 Other diseases of stomach and duodenum; N18.30 Chronic kidney disease, stage 3 unspecified; I10 Essential (primary) hypertension; G89.29 Other chronic pain; I85.10 Secondary esophageal varices without bleeding; E11.22 Type 2 diabetes mellitus with diabetic chronic kidney disease; M54.9 Dorsalgia, unspecified; Z79.899 Other long term (current) drug therapy; Z98.51 Tubal ligation status
CPT/HCPCS: 36415; 43227; 43235; 74174; 80053; 81001; 82150; 82728; 83540; 83550; 83690; 83735; 85008; 85025; 85610; 86885; 86900; 86901; 87081; 96374; 99152; 99285; A4620; G0378; J2250; J2354; J2405; J2470; J3010; J7030; J7040; Q9967